=== PATIENT | female | born 1945 | race Caucasian/White ===

== ENCOUNTER 2023-04-01 20:44 | Emergency (ER) | payer OTHER ==
[~2023-04-01] VITALS: Ht 154.9 cm; Wt 43.5 kg
[2023-04-01 21:13] VITALS: BP 181/98; PULSE 101; RESP 23; TEMP 97.1; O2SAT 96
[2023-04-01] MEDS ORDERED: NACL 0.9% 1,000 ML IV ONE (21:40)
[2023-04-01] MEDS ORDERED: ACETAMINOPHEN 325 MG TAB PO ONE (21:40)
[2023-04-01] MEDS ORDERED: ALBUTEROL 0.083% 2.5 MG/3 ML NEBU INH ONE (21:40)
[2023-04-01 22:03] VITALS: PULSE 94; RESP 19; O2SAT 96
[2023-04-01 22:08] LABS: FLU A ANTIGEN negative (NEGATIVE); FLU B ANTIGEN NEGATIVE (NEGATIVE)
[2023-04-01] MEDS ORDERED: IBUP-1842 PO (22:23)
[2023-04-01] MEDS ORDERED: PRED20TA5 PO (22:23)
[2023-04-01 23:17] VITALS: BP 149/70; PULSE 96; RESP 19; O2SAT 98
== END 2023-04-01 23:10 | disposition home or self-care (01) ==
LOC: MED 20:44
DX: J06.9 Acute upper respiratory infection, unspecified (principal); R51.9 Headache, unspecified; I10 Essential (primary) hypertension; E11.9 Type 2 diabetes mellitus without complications; E78.5 Hyperlipidemia, unspecified; Z88.0 Allergy status to penicillin; Z20.822 Contact with and (suspected) exposure to COVID-19
CPT/HCPCS: 71045; 87426; 87804; 94640; 99284; J7613